=== PATIENT | male | born 1965 | race American Indian/Alaskan Native ===

== ENCOUNTER 2018-01-01 15:28 | Emergency (ER) | payer SELFPAY ==
--- NOTE | 2018-01-01 20:07 | Emergency Department Report ---
ED General Adult HPI - General Chief complaint: Pain General Stated complaint: RUBY ROE FELL ON BODY Time Seen by Provider: 01/01/18 20:01 Source: patient Mode of arrival: Ambulatory Limitations: No Limitations - History of Present Illness Initial comments: 52-year-old -[place] male comes to the emergency room complaining of this back is hurting and feel sore. Patient reports that on approximate 5 PM he was moving a riding lawnmower and it fell on him. Patient reports that he's been taking Tylenol and aspirin and Aleve with no help. Patient is moving around walking in fast track. Patient reports he has a past medical history of hypertension. He denies any headache no nausea no vomiting no change of vision no dizziness. She denies any urinary incontinence fecal incontinence no paresthesias no tremors. -: days(s) (3) Location: back Severity scale (0 -10): 10 Quality: aching Consistency: intermittent Improves with: none Worsens with: none Associated Symptoms: denies other symptoms Treatments Prior to Arrival: NSAID, Aspirin - Related Data Previous Rx's Medication Instructions Recorded Last Taken Type Baclofen [Lioresal] 10 mg PO TID #15 tab 01/01/18 Unknown Rx Naproxen [Naprosyn] 500 mg PO BID #20 tablet 01/01/18 Unknown Rx Allergies Allergy/AdvReac Type Severity Reaction Status Date / Time No Known Allergies Allergy Unverified 01/01/18 20:11 ED Review of Systems ROS: Stated complaint: RUBY ROE FELL ON BODY Other details as noted in HPI Comment: All other systems reviewed and negative Musculoskeletal: back pain ED Past Medical Hx - Past Medical History Hx Hypertension: Yes - Social History Smoking Status: Current Every Day Smoker Substance Use Type: Alcohol - Medications Home Medications: Home Medications Medication Instructions Recorded Confirmed Last Taken Type Baclofen [Lioresal] 10 mg PO TID #15 tab 01/01/18 Unknown Rx Naproxen [Naprosyn] 500 mg PO BID #20 tablet 01/01/18 Unknown Rx ED Physical Exam - General Limitations: No Limitations General appearance: alert, in no apparent distress - Head Head exam: Present: atraumatic, normocephalic - Eye Eye exam: Present: normal appearance - ENT ENT exam: Present: mucous membranes moist - Neck Neck exam: Present: normal inspection - Respiratory Respiratory exam: Present: normal lung sounds bilaterally. Absent: respiratory distress - Cardiovascular Cardiovascular Exam: Present: regular rate, normal rhythm. Absent: systolic murmur, diastolic murmur, rubs, gallop - GI/Abdominal GI/Abdominal exam: Present: soft, normal bowel sounds - Back Exam Back exam: Present: tenderness, muscle spasm - Neurological Exam Neurological exam: Present: alert, oriented X3 - Psychiatric Psychiatric exam: Present: anxious - Skin Skin exam: Present: warm, dry, intact, normal color. Absent: rash ED Course Vital Signs 01/01/18 15:56 Temperature 98.6 F Pulse Rate 98 H Blood Pressure 192/115 ED Medical Decision Making - Medical Decision Making Patient has been evaluated by this provider fast track. Toradol 30 mg IM for pain management. Patient be discharged on baclofen 10 mg 3 times a day when necessary for muscle spasms as well as naproxen 500 mg by mouth twice a day for pain. [place] [facility] [place]. Critical care attestation.: If time is entered above; I have spent that time in minutes in the direct care of this critically ill patient, excluding procedure time. ED Disposition Clinical Impression: Muscle spasm of back Back pain Qualifiers: Back pain location: low back pain Chronicity: acute Back pain laterality: left Sciatica presence: without sciatica Qualified Code(s): M54.5 - Low back pain Disposition: DC-01 TO HOME OR SELFCARE Is pt being admited?: No Does the pt Need Aspirin: No Condition: Stable Instructions: Acute Low Back Pain (ED) Additional Instructions: Take pain medication as prescribed. If her symptoms persist or gets worse please follow up with her primary care provider. Prescriptions: Baclofen [Lioresal] 10 mg PO TID #15 tab Naproxen [Naprosyn] 500 mg PO BID #20 tablet Referrals: PRIMARY CAREMD [Primary Care Provider] - 3-5 Days [facility] [Provider Group] - 3-5 Days Forms: Work/School Release Form(ED)
[2018-01-01] MEDS ORDERED: TORADOL IM ONE (20:11)
[2018-01-01 20:42] VITALS: BP 194/104
== END 2018-01-01 20:54 | disposition home or self-care (01) ==
LOC: ED 15:28
DX: M62.830 Muscle spasm of back (principal); M54.5 Low back pain; I10 Essential (primary) hypertension; F17.200 Nicotine dependence, unspecified, uncomplicated
CPT/HCPCS: 96372; 99282; J1885